=== PATIENT | female | born 1995 | race Caucasian/White ===

== ENCOUNTER 2022-01-23 14:45 | Inpatient (IN) | payer MEDICARE, MEDICAID ==
[~2022-01-23] VITALS: Ht 162.6 cm; Wt 64.5 kg
[2022-01-23 16:22] LABS: COVID AG,FIA SOURCE NASOPHARYNGEAL
[2022-01-23] MEDS ORDERED: GABA-1201 PO (16:29)
[2022-01-23] MEDS ORDERED: ISOT30CA14 PO (16:29)
[2022-01-23] MEDS ORDERED: IVAB5TAB PO (16:29)
[2022-01-23] MEDS ORDERED: LAMO100 PO (16:29)
[2022-01-23] MEDS ORDERED: VORT10TA PO (16:29)
[2022-01-23] MEDS ORDERED: NORT10 PO (16:29)
[2022-01-23] MEDS ORDERED: NORE-109 PO (16:29)
[2022-01-23 16:52] LABS: BASOPHILS % (AUTO) 0.4 % (0.0-2.0); EOSINOPHILS % (AUTO) 0.7 % (1.0-6.0); HEMATOCRIT 42.1 % (36-46); HEMOGLOBIN 14.4 g/dL (12.0-16.0); MEAN CORPUSCULAR HEMOGLOBIN 28.7 pg (26.0-34.0); MEAN CORPUSCULAR HGB CONC 34.1 G/dL (31.0-37.0); MEAN CORPUSCULAR VOLUME 84 fL (80-100); MONOCYTES # (AUTO) 0.4 K/uL (0.1-1.0); MONOCYTES % (AUTO) 5.4 % (2.0-9.0); NEUTROPHILS % (AUTO) 66.5 % (40.0-70.0); PLATELET COUNT (AUTO) 327 K/uL (150-450); RED BLOOD CELL COUNT(AUTO) 5.01 MIL/uL (4.00-5.20)
[2022-01-23 17:09] LABS: ANION GAP 7 mmol/L (8-16); CALCIUM, TOTAL 9.3 mg/dL (8.8-10.5); CARBON DIOXIDE 25 mmol/L (22-29); CHLORIDE 104 mmol/L (98-107); CREATININE 0.89 mg/dL (0.60-1.30); GLOMERULAR FILTR. RATE CALC > 60 mL/min (>60); GLUCOSE,RANDOM 85 mg/dL (70-110); POTASSIUM 4.1 mmol/L (3.5-5.1); SODIUM SERUM 136 mmol/L (136-145); UREA NITROGEN, BLOOD 9 mg/dL (7-18)
[2022-01-23 17:13] LABS: AMPHET/METH SCREEN,URINE NEGATIVE (NEGATIVE); BARBITURATE SCREEN, URINE NEGATIVE (NEGATIVE); BENZODIAZEPINES SCREEN,URINE POSITIVE (NEGATIVE); CANNABINOID SCREEN,URINE POSITIVE (NEGATIVE); COCAINE SCREEN,URINE NEGATIVE (NEGATIVE); METHADONE SCREEN, URINE NEGATIVE (NEGATIVE); OPIATE SCREEN,URINE NEGATIVE (NEGATIVE)
[2022-01-23 17:22] LABS: ALANINE AMINOTRANSFERASE 27 U/L (12-78); ALKALINE PHOSPHATASE 87 U/L (46-116); ASPARTATE AMINOTRANSFERASE 32 U/L (15-37); BILIRUBIN,TOTAL 0.4 mg/dL (0.1-1.0); HCG,QUANTITATIVE < 1 mIU/mL (0-6); TOTAL PROTEIN, SERUM 7.3 g/dL (6.4-8.2)
[2022-01-23 17:36] LABS: PHENCYCLIDINE SCREEN,URINE NEGATIVE (NEGATIVE)
[2022-01-23] MEDS ORDERED: LEVA15HF3 PO (18:33)
[2022-01-23] MEDS ORDERED: ISOT40CA PO (18:33)
[2022-01-23] MEDS ORDERED: NORE-227 PO (18:33)
[2022-01-23] MEDS ORDERED: ZOLPIDEM TARTRATE 10 MG TABLET PO PRN (19:15)
[2022-01-23] MEDS ORDERED: HALOPERIDOL 5 MG TABLET PO PRN (19:15)
[2022-01-23] MEDS ORDERED: IVABRADINE HCL 5 MG TABLET PO ONE (20:15)
[2022-01-23] MEDS ORDERED: GABAPENTIN 400 MG CAPSULE PO ONE (20:15)
[2022-01-23] MEDS ORDERED: MIDO2.5T19 PO (20:44)
[2022-01-23] MEDS ORDERED: MIDODRINE HCL 2.5 MG TABLET PO ONE (21:00)
[2022-01-23 23:40] VITALS: BP 109/75
[2022-01-24] MEDS ORDERED: PNEUMOCOCCAL VACCINE POLYVALENT 0.5 ML VIAL [PPSV23] IM. ONE (02:45)
[2022-01-24] MEDS: GABAPENTIN 300 MG CAPSULE PO SCH ×3 (08:15→16:08)
[2022-01-24 08:30] VITALS: BP 122/87
[2022-01-24] MEDS ORDERED: DOCUSATE SODIUM 100 MG CAPSULE PO PRN (09:30)
[2022-01-24] MEDS ORDERED: PETROLATUM,WHITE 28 GM JELLY TP PRN (09:30)
[2022-01-24] MEDS ORDERED: MAGNESIUM HYDROXIDE SUSPENSION 30 ML UDCUP PO PRN (09:30)
[2022-01-24] MEDS ORDERED: GuaiFENesin/D-METHORPHAN [SUGAR-FREE] 200-20MG/10 ML SYRUP UDCUP PO PRN (09:30)
[2022-01-24] MEDS ORDERED: IBUPROFEN 400 MG TABLET PO PRN (09:30)
[2022-01-24] MEDS ORDERED: NICOTINE 14 MG/24 HOUR PATCH TD PRN (09:30)
[2022-01-24] MEDS ORDERED: ONDANSETRON HCL 4 MG TABLET PO PRN (09:30)
[2022-01-24] MEDS ORDERED: ALBUTEROL SULFATE HFA 90 MCG/PUFF 8 GM INHALER IH PRN (09:30)
[2022-01-24] MEDS ORDERED: CloNIDine HCL 0.1 MG TABLET PO PRN (09:30)
[2022-01-24] MEDS ORDERED: LOPERAMIDE HCL 2 MG CAPSULE PO PRN (09:30)
[2022-01-24] MEDS ORDERED: MAG HYDROX/AL HYDROX/SIMETH ES 30 ML SUSPENSION UDCUP PO PRN (09:30)
[2022-01-24] MEDS ORDERED: ACETAMINOPHEN 325 MG TABLET PO PRN (09:30)
[2022-01-24] MEDS: LamoTRIgine 100 MG TABLET PO SCH (11:22)
[2022-01-24] MEDS: MIDODRINE HCL 2.5 MG TABLET PO SCH ×3 (12:46→16:09)
[2022-01-24] MEDS: IVABRADINE HCL 5 MG TABLET PO SCH ×2 (13:15→16:56)
[2022-01-24] MEDS: NORTRIPTYLINE HCL 10 MG CAPSULE PO SCH (16:10)
[2022-01-24 16:56] VITALS: BP 112/80
[2022-01-24 20:42] VITALS: BP 111/85
[2022-01-24] MEDS: LORazepam 2 MG TABLET PO PRN (22:09)
[2022-01-25] MEDS: IVABRADINE HCL 5 MG TABLET PO SCH ×2 (06:56→16:34)
[2022-01-25] MEDS ORDERED: *PATIENT'S OWN MED [ENTER DRUG, DOSE, FREQUENCY IN COMMENTS] CLINICAL SCH (09:00)
[2022-01-25] MEDS: GABAPENTIN 300 MG CAPSULE PO SCH ×3 (09:43→16:35)
[2022-01-25] MEDS: LamoTRIgine 100 MG TABLET PO SCH (09:43)
[2022-01-25] MEDS: MIDODRINE HCL 2.5 MG TABLET PO SCH ×3 (09:44→16:35)
[2022-01-25] MEDS: NORTRIPTYLINE HCL 10 MG CAPSULE PO SCH ×2 (09:46→16:36)
[2022-01-25] MEDS: FERROUS FUMARATE PO SCH (09:48)
[2022-01-25] MEDS: ETHINYL ESTRADIOL PO SCH (09:48)
[2022-01-25] MEDS: NORETHINDRONE ACETATE PO SCH (09:48)
[2022-01-25 10:10] VITALS: BP 114/85
[2022-01-25 16:34] VITALS: BP 117/74
[2022-01-25 20:02] VITALS: BP 109/74
[2022-01-25] MEDS: LORazepam 2 MG TABLET PO PRN (21:04)
[2022-01-26] MEDS: IVABRADINE HCL 5 MG TABLET PO SCH (06:31)
[2022-01-26] MEDS: GABAPENTIN 300 MG CAPSULE PO SCH ×2 (08:31→12:52)
[2022-01-26] MEDS: MIDODRINE HCL 2.5 MG TABLET PO SCH ×2 (08:32→12:52)
[2022-01-26] MEDS: LamoTRIgine 100 MG TABLET PO SCH (08:32)
[2022-01-26] MEDS: NORTRIPTYLINE HCL 10 MG CAPSULE PO SCH (08:33)
[2022-01-26] MEDS: ETHINYL ESTRADIOL PO SCH (08:34)
[2022-01-26] MEDS: FERROUS FUMARATE PO SCH (08:34)
[2022-01-26] MEDS: NORETHINDRONE ACETATE PO SCH (08:34)
[2022-01-26 09:22] VITALS: BP 112/83
[2022-01-26] MEDS ORDERED: LAMO100 PO (14:32)
[2022-01-26] MEDS ORDERED: NORT10 PO (14:32)
[2022-01-26] MEDS ORDERED: MIDO2.5T19 PO (14:32)
[2022-01-26] MEDS ORDERED: GABA-1181 PO (14:32)
[2022-01-26] MEDS ORDERED: IVAB5TAB PO (14:32)
[2022-01-26] MEDS ORDERED: FOLI-130 PO (14:32)
== END 2022-01-26 16:30 | disposition home or self-care (01) | DRG 885 ==
LOC: EMS 14:47 → B2X 20:44
PROVIDERS: ADMIT Psychiatry & Neurology Child & Adolescent Psychiatry; ATTEND Psychiatry & Neurology Child & Adolescent Psychiatry
DX: F33.2 Major depressive disorder, recurrent severe without psychotic features (principal); R45.851 Suicidal ideations; F41.9 Anxiety disorder, unspecified; I95.1 Orthostatic hypotension; Z20.822 Contact with and (suspected) exposure to COVID-19; K58.9 Irritable bowel syndrome, unspecified; J45.909 Unspecified asthma, uncomplicated; Z79.899 Other long term (current) drug therapy; Z86.16 Personal history of COVID-19
CPT/HCPCS: 80053; 84702; 85025; 99285; G0480; Q0162; Q9967